=== PATIENT | female | born 1965 | race Caucasian/White ===

== ENCOUNTER → 2016-11-01 | Outpatient (CLI) | payer BC ==
--- NOTE | 2016-11-01 09:39 | DIAGNOSTIC IMAGING REPORT ---
ULTRASOUND OF THE THYROID GLAND CLINICAL HISTORY: Thyroid nodule. COMPARISON STUDY: Thyroid ultrasound dated 11/01/2015. TECHNIQUE: Real-time, grayscale, and color flow sonography of the thyroid gland is performed utilizing a high-frequency linear transducer. Images are reviewed in the transverse and longitudinal planes. FINDINGS: Right lobe: The right lobe of the thyroid gland is normal in size and slightly heterogeneous in echotexture, measuring 4.0 x 1.4 x 1.6 cm. The right lobe appears mildly hyperemic Left lobe: The left lobe of the thyroid gland is normal in size and slightly heterogeneous in echotexture, measuring 3.9 x 1.3 x 1.6 cm. A slightly hyperechoic solid nodule in the upper pole measures 0.9 x 0.4 x 0.4 cm (producing measured 0.7 x 0.4 x 0.4 cm). A slightly hyperechoic nodule in the lower pole measures 0.9 x 0.6 x 0.8 cm (previously measured 0.9 x 0.5 x 0.7 cm). The left lobe appears mildly hyperemic on color imaging. Isthmus: The thyroid isthmus is normal in appearance and measures 0.2 cm in AP diameter. IMPRESSION: 1. The thyroid gland is normal in size and slightly heterogeneous in echotexture. The gland appears hyperemic on color imaging. Correlation with serum thyroid function studies will be required. 2. There are 2 subcentimeter nodules in the left lobe which are unchanged from 11/01/2015. Electronically signed by: Michael Patel M.D. 11/01/2016 9:38 AM Dictated Date/Time: 11/01/2016 9:35 AM
== END | disposition home or self-care (01) ==
LOC: C.ULTR 08:41
PROVIDERS: ATTEND Family Medicine
DX: E04.2 Nontoxic multinodular goiter (principal)

== ENCOUNTER → 2016-11-20 | Outpatient (CLI) | payer BC ==
--- NOTE | 2016-11-21 13:53 | MAMMOGRAPHY REPORT ---
BILATERAL DIGITAL SCREENING MAMMOGRAM TOMOSYNTHESIS WITH CAD: 11/20/2016 CLINICAL HISTORY: Routine screening. TECHNIQUE: Breast tomosynthesis in addition to standard 2D mammography was performed. Current study was also evaluated with a Computer Aided Detection (CAD) system. COMPARISON: Comparison is made to exams dated: 11/04/2015 mammogram, 10/27/2014 mammogram, 06/13/2013 m ammogram, 06/10/2012 mammogram, 12/15/2009 mammogram, and 03/08/2009 mammogram - [facility]. BREAST COMPOSITION: The tissue of both breasts is extremely dense, which lowers the sensitivity of m ammography. FINDINGS: There is a cluster of microcalcifications in the upper outer posterior left breast, for wh ich additional spot magnification views are recommended. There is stable focal asymmetry in the upper outer posterior right breast. A few other scattered lesli ign-appearing round and punctate microcalcifications in the breasts. No other suspicious mass, juan carlos ectural distortion or cluster of microcalcifications is seen. IMPRESSION: ACR BI-RADS CATEGORY 0: INCOMPLETE EVALUATION: NEED ADDITIONAL IMAGING EVALUATION The cluster of microcalcifications in the upper outer posterior left breast needs additional evaluati on. The patient will be called to schedule an appointment. Approximately 10% of breast cancers are not detected with mammography. A negative mammographic report should not delay biopsy if a clinically suggestive mass is present. Randa Tellez M.D. ay/:11/20/2016 16:17:49 Floor Attendant: Misti MCGRATH(Brendan)(Cat), [facility] letter sent: Addl Imaging 0 BI-RADS Code: ACR BI-RADS Category 0: Incomplete Evaluation: Need Additional Imaging Evaluation
== END | disposition home or self-care (01) ==
LOC: C.MAMM 12:39
PROVIDERS: ATTEND Family Medicine
DX: Z12.31 Encounter for screening mammogram for malignant neoplasm of breast (principal); R92.0 Mammographic microcalcification found on diagnostic imaging of breast

== ENCOUNTER → 2016-12-02 | Outpatient (CLI) | payer BC ==
[2016-12-02 10:25] LABS: BASO % 0.2 %; BASO ABS # 0.01 K/uL (0-0.2); COMPLETE YES; HEMATOCRIT 38.2 % (37-47); IG% 0.4 %; LYMPH % 19.7 %; LYMPH ABS # 1.11 K/uL (1.2-3.4); MEAN CELL VOLUME 87.8 fL (80-100); MEAN CORPUSCULAR HEMOGLOBIN 28.3 pg (25-34); MEAN CORPUSCULAR HGB CONC 32.2 g/dl (32-36); MEAN PLATELET VOLUME 9.2 fL (7.4-10.4); MONO % 7.3 %; NEUT % 69.4 %; PLATELET COUNT 276 K/uL (130-400); RED BLOOD COUNT 4.35 M/uL (4.2-5.4); WHITE BLOOD COUNT 5.64 K/uL (4.8-10.8)
[2016-12-02 16:40] LABS: LYME DISEASE AB IGG POS (NEG); LYME DISEASE AB IGM POS (NEG)
[2016-12-08 06:59] LABS: 18KDIGG BAND REACTIVE (NONREACTIVE); 23KDIGG BAND REACTIVE (NONREACTIVE); 23KDIGM BAND REACTIVE (NONREACTIVE); 28KDIGG BAND NONREACTIVE (NONREACTIVE); 30KDIGG BAND NONREACTIVE (NONREACTIVE); 39KDIGG BAND REACTIVE (NONREACTIVE); 39KDIGM BAND REACTIVE (NONREACTIVE); 41KDIGG BAND REACTIVE (NONREACTIVE); 41KDIGM BAND REACTIVE (NONREACTIVE); 45KDIGG BAND REACTIVE (NONREACTIVE); 58KDIGG BAND REACTIVE (NONREACTIVE); 66KDIGG BAND REACTIVE (NONREACTIVE); 93KDIGG BAND NONREACTIVE (NONREACTIVE)
== END | disposition home or self-care (01) ==
LOC: C.LAB 09:37
PROVIDERS: ATTEND Nurse Practitioner
DX: R21 Rash and other nonspecific skin eruption (principal); M25.552 Pain in left hip; M54.2 Cervicalgia; Z68.20 Body mass index [BMI] 20.0-20.9, adult; R19.09 Other intra-abdominal and pelvic swelling, mass and lump

== ENCOUNTER → 2016-12-08 | Outpatient (CLI) | payer BC ==
--- NOTE | 2016-12-08 12:57 | MAMMOGRAPHY REPORT ---
UNILATERAL LEFT DIGITAL DIAGNOSTIC MAMMOGRAM: 12/08/2016 CLINICAL HISTORY: Callback from screening mammogram for left breast calcifications. The patient reports a family history of breast cancer with 2 sisters diagnosed in their 50s and 60s. TECHNIQUE: Spot magnification left CC and ML views were obtained. COMPARISON: Comparison is made to exams dated: 11/20/2016 mammogram, 11/04/2015 mammogram, 10/27/2014 m ammogram, 12/11/2013 ultrasound, 12/11/2013 mammogram, and 06/13/2013 ultrasound - [facility]. BREAST COMPOSITION: The tissue of the left breast is extremely dense, which lowers the sensitivity o f mammography. FINDINGS: There is a small 5 mm cluster of calcifications in the left upper outer quadrant posterior ly. Some of the calcifications demonstrate layering on the lateral view, consistent with benign milk of calcium. The others that do not clearly demonstrate layering are round/punctate. The calcificat ions do not appear significantly changed compared to prior exams including the 2015 and 2014 exams, a nd possibly also the 2012 exam on the MLO view. Given the evidence of layering and given the stabili ty to prior exams, the calcifications are benign and compatible with milk of calcium. Other scattere d benign-appearing calcifications are seen within the left breast on the magnified views; many of the se also demonstrate layering, consistent with benign milk of calcium. No suspicious calcifications a re evident. IMPRESSION: ACR BI-RADS CATEGORY 2: BENIGN Small cluster of calcifications in the left upper outer quadrant is stable dating back to at least 2014 exam, and is benign and compatible with milk of calcium/fibrocystic changes. There is no mamm ographic evidence of malignancy. A 1 year screening mammogram is recommended. The patient has been v erbally notified of the results. Approximately 10% of breast cancers are not detected with mammography. A negative mammographic report should not delay biopsy if a clinically suggestive mass is present. Gilda Jsoeph M.D. /:12/08/2016 08:24:08 Assistant Softball Coach: Lauren MCGRATH(R)(M), [facility] letter sent: Normal 1/2 BI-RADS Code: ACR BI-RADS Category 2: Benign
== END | disposition home or self-care (01) ==
LOC: C.MAMM 08:01
PROVIDERS: ATTEND Family Medicine
DX: R92.8 Other abnormal and inconclusive findings on diagnostic imaging of breast (principal); R92.1 Mammographic calcification found on diagnostic imaging of breast

== ENCOUNTER → 2017-12-27 | Outpatient (CLI) | payer BC ==
--- NOTE | 2017-12-27 15:43 | MAMMOGRAPHY REPORT ---
BILATERAL DIGITAL SCREENING MAMMOGRAM TOMOSYNTHESIS WITH CAD: 12/27/2017 CLINICAL HISTORY: Routine screening. Patient has no complaints. TECHNIQUE: The study was acquired using full field digital technology and interpreted from soft copy. Breast tomosynthesis in addition to standard 2D mammography was performed. Current study was also ev aluated with a Computer Aided Detection (CAD) system. COMPARISON: Comparison is made to exams dated: 12/08/2016 mammogram, 11/20/2016 mammogram, 11/04/2015 m ammogram, 10/27/2014 mammogram, 12/11/2013 ultrasound, and 12/11/2013 mammogram - [facility] [address]. BREAST COMPOSITION: The tissue of both breasts is extremely dense, which lowers the sensitivity of ma mmography. FINDINGS: No suspicious masses, calcifications, or areas of architectural distortion are noted in either breast . There has been no significant interval change compared to prior exams. Bilateral benign-appearing calcifications are again noted. Right superior posterior breast asymmetry is stable compared to mult iple prior exams. IMPRESSION: ACR BI-RADS CATEGORY 2: BENIGN There is no mammographic evidence of malignancy. A 1 year screening mammogram is recommended.( [id number]) The patient will receive written notification of the results. Some breast cancers are not detected with mammography. A negative mammographic report should not otoniel y biopsy if a clinically suggestive mass is present. Gilda Joseph M.D. /:12/27/2017 07:45:21 [employer]: RT Sherri(R)(M), [facility] [address] letter sent: Normal 1/2 BI-RADS Code: ACR BI-RADS Category 2: Benign
== END | disposition home or self-care (01) ==
LOC: C.MAMM 07:19
PROVIDERS: ATTEND Family Medicine
DX: Z12.31 Encounter for screening mammogram for malignant neoplasm of breast (principal)